=== PATIENT | female | born 1960 | race Caucasian/White ===

== ENCOUNTER → 2020-05-15 08:34 | Outpatient (REF) | payer BC, SELFPAY | LOC: ANHLAB 08:34 | PROVIDERS: PCP Internal Medicine; Visit Provider Nurse Practitioner | DX: C43.72 Malignant melanoma of left lower limb, including hip (principal) | CPT/HCPCS: 88305; 88342 ==

== ENCOUNTER → 2020-05-24 12:38 | Outpatient (REF) | payer BC, SELFPAY | LOC: ANHLAB 12:38 | PROVIDERS: PCP Internal Medicine; Visit Provider Nurse Practitioner | DX: C43.72 Malignant melanoma of left lower limb, including hip (principal) | CPT/HCPCS: 88305; 88342 ==

== ENCOUNTER → 2022-03-11 13:21 | Outpatient (REF) | payer BC, SELFPAY | LOC: ANHLAB 13:21 | PROVIDERS: PCP Internal Medicine; Visit Provider Nurse Practitioner | DX: D49.2 Neoplasm of unspecified behavior of bone, soft tissue, and skin (principal) | CPT/HCPCS: 88305 ==

== ENCOUNTER 2023-03-16 10:30 | Outpatient (NON) | payer BC, SELFPAY | END 2023-03-16 10:31 | disposition home or self-care (01) | PROVIDERS: PCP Internal Medicine; Visit Provider Nurse Practitioner | DX: D22.71 Melanocytic nevi of right lower limb, including hip (principal) | CPT/HCPCS: 88305 ==